=== PATIENT | female | born 1950 | race Caucasian/White ===

== ENCOUNTER 2018-01-18 15:31 | Emergency (ER) | payer MEDICARE ==
[~2018-01-18] VITALS: Ht 170.2 cm; Wt 66.7 kg
--- NOTE | 2018-01-18 16:38 | Diagnostic Imaging Report ---
EXAMINATION: PA and lateral views of the chest. COMPARISON: None CLINICAL HISTORY: Shortness of breath DISCUSSION: The lungs are hyperinflated with flattening of the hemidiaphragms and increased AP diameter of the chest. Biapical pleural-parenchymal scar, right greater than left. No focal airspace consolidation, pleural effusion, or pneumothorax. Cardiomediastinal contour and pulmonary vasculature are within normal limits. Age indeterminant moderate anterior compression deformity of T11 with approximately 50% loss of anterior vertebral body height. Background diffuse osteopenia. IMPRESSION: No acute cardiopulmonary abnormality. Hyperinflated lungs compatible with emphysema. Age-indeterminate though likely remote anterior compression deformity of T11. Correlate for point tenderness. Background diffuse osteopenia. Signed by: Dr. Howard Duenas M.D. on 01/18/2018 4:35 PM
== END 2018-01-18 19:49 | disposition home or self-care (01) ==
LOC: FSED 15:31
DX: R06.00 Dyspnea, unspecified (principal); J44.9 Chronic obstructive pulmonary disease, unspecified
CPT/HCPCS: 71046; 80053; 82553; 84484; 85025; 93005; 99284

== ENCOUNTER 2019-07-30 13:13 | Emergency (ER) | payer MEDICARE ==
[~2019-07-30] VITALS: Ht 170.2 cm; Wt 66.7 kg
--- OUTSIDE RECORDS SUMMARY | 2019-07-30 13:15 | XMS REPORT ---
Author Author [facility] Address Unknown Phone Unavailable Care Team Providers Care Testing Director Name Role Phone NONSTAFF PP Unavailable Arturo CEVALLOS Unavailable Unavailable Payers Payer Name Policy Type Policy Number Effective Date Expiration Date [employer] Advantage [id number] 2015 00:00:00 Problems This patient has no known problems. Allergies, Adverse Reactions, Alerts Allergy Name Allergy Type Status Severity Reaction(s) Onset Date Inactive Date Treating Clinician Comments ANESTHESIA Allergy to Substance Active Mild 2010-01-13 00:00:00 Medications This patient has no known medications. Encounters Start Date/Time End Date/Time Encounter Type Admission Type Attending Clinicians Care Facility Care Department Encounter ID 2018-01-18 15:31:00 2018-01-18 19:49:00 Departed Emergency Room [address] [facility] [id number] Results Test Description Test Time Test Comments Text Results Atomic Results Result Comments CXR 2 VIEW - HOPD 2018-01-18 16:31:[address] [address] Patient Name: CHLOE JIN MR #: [id number] : 1950 Age/Sex: 67/F Req #: [id number] Adm Physician: Ordered by: LUCIA CEVALLOS MD Report #: [id number] Location: [facility] Room/Bed: Procedure: [id number] HOPD/CXR 2 VIEW - [facility] Exam Date: 01/18/18 Exam Time: 1625 REPORT STATUS: Signed EXAMINATION: PA and lateral views of the chest. COMPARISON: None CLINICAL HISTORY: Shortness of breath DISCUSSION: The lungs are hyperinflated with flattening of the hemidiaphragms and increased AP diameter of the chest. Biapical pleural- parenchymal scar, right greater than left. No focal airspace consolidation, pleural effusion, or pneumothorax. Cardiomediastinal contour and pulmonary vasculature are within normal limits. Age indeterminant moderate anterior compression deformity of T11 with approximately 50% loss of anterior vertebral body height. Background diffuse osteopenia. IMPRESSION: No acute cardiopulmonary abnormality. Hyperinflated lungs compatible with emphysema. Age-indeterminate though likely remote anterior compression deformity of T11. Correlate for point tenderness. Background diffuse osteopenia. Signed by: Dr. Kana Liu M.D. on 01/18/2018 4:35 PM Dictated By: KANA LIU MD 34 Transcribed By: JESSICA on 01/18/181634 COPY TO: LUCIA CEVALLOS MD
--- NOTE | 2019-07-30 15:16 | Diagnostic Imaging Report ---
TECHNIQUE: 3 views of the right knee HISTORY: ^trauma and pain ^[id number] ^[id number] ^N. COMPARISON: None. IMPRESSION: No acute displaced fracture or dislocation. Joint spaces are within normal limits. Soft tissues are grossly unremarkable. Signed by: Yonathan Dave MD on 07/30/2019 3:13 PM
== END 2019-07-30 15:40 | disposition home or self-care (01) ==
LOC: FSED 13:13
DX: S80.01XA Contusion of right knee, initial encounter (principal); X50.1XXA Overexertion from prolonged static or awkward postures, initial encounter; Y93.K1 Activity, walking an animal; Y92.89 Other specified places as the place of occurrence of the external cause; F17.210 Nicotine dependence, cigarettes, uncomplicated
CPT/HCPCS: 99283